=== PATIENT | female | born 2000 | race Two or more races ===

== ENCOUNTER 2025-06-09 22:52 | Inpatient (IN) | payer OTHER ==
[~2025-06-09] VITALS: Ht 157.5 cm; Wt 51.7 kg
[2025-06-09] MEDS: IOHEXOL 350 MG/ML 100ML IJ ONE (23:31)
--- NOTE | 2025-06-10 00:01 | ED.PDOC ---
History of Present Illness HPI Comments This is a 24 year-old female, accompanied by spouse, with a PMHX of DM, who presents to the ED with a chief complaint of general weakness with associated left arm numbness, face numbness, and lip tingling at approximately 2200 today. Patient reports she was at [facility] when onset of symptoms began for less than 1 minute. Patient reports being discharged from the hospital with DKA on Monday, 2 days ago. Patient has a further complaints at this time and otherwise denies further associated symptoms of fever, chills, N/V/D, LOC, or dizziness. REVIEW OF SYSTEMS: (+) general weakness, No fever, no chills, or fatigue HEENT: No sore throat, no earache, no congestion, no neck pain. Cardiac: No chest pain. No palpitations. Lungs: No shortness of breath, no cough. GI: No nausea, no vomiting, no diarrhea, no constipation, no abdominal pain : No dysuria, frequency, or urgency. No hematuria. Musculoskeletal: No joint pain , no joint swelling, no extremity edema. Skin: No rash, no itching. Neuro: (+) L arm numbness, (+) facial numbness, No headache, no dizziness, no weakness EXAM: General: Awake, alert and oriented. No acute distress. Skin: Skin in warm, dry and intact. Appropriate color for ethnicity. HEENT: The head is normocephalic and atraumatic. Conjunctivae are clear without exudates or hemorrhage. Sclera is non-icteric. EOM are intact. No signs of nystagmus. Eyelids are normal in appearance without swelling or lesions. Oral mucosa is pink and moist Neck: The neck is supple with normal range of motion. No JVD. Cardiac: Heart rate and rhythm are normal. No murmurs, gallops, or rubs are auscultated. Respiratory: No signs of respiratory distress. Lung sounds are clear in all lobes bilaterally without rales, rhonchi, or wheezes. Abdominal: Abdomen is soft, non-tender without distention. Bowel sounds are present and normoactive in all four quadrants. Extremities: Upper and lower extremities are atraumatic in appearance without deformity or edema. Neurological: (+) Normal finger nose test, no upper or lower extremity drift, normal Gait, sensation in tact bilaterally. Speech is clear. There is no facial asymmetry. Psychiatric: Appropriate mood and affect. Good judgement and insight. Chief Complaint: General Weakness Time Seen by MD: 23:31 Reviewed Notes: Medications, Allergies Allergies: Coded Allergies: NO KNOWN ALLERGIES (Unverified , 06/09/25) Information Source: Patient, Spouse Mode of Arrival: Ambulatory Severity: Moderate Timing: Hours, Came on: Suddenly Associated signs and symptoms L arm numbness, facial numbness, general weakness, lip tingling Past Medical History Past Medical History (Other): DKA Surgical History: Denies all surgeries RICE MILLING SUPERVISOR History: No Pertinent RICE MILLING SUPERVISOR History Family History Family History: Reviewed,noncontributory to illness, No family hx of Cancer, No family hx of DM, No family hx of Heart yuan, No family hx of HTN, No family hx ofKidney yuan, No family hx of Liver yuan, No family hx of Lung yuan, No family hx of Stroke Social History Smoker: Non-Smoker Alcohol: Denies ETOH Use Drugs: Denies Drug Use Lives In: Home Was a procedure done? Was a procedure done?: No X-Ray, Labs, Meds, VS Vital Signs Date Time Temp Pulse Resp B/P (MAP) Pulse Ox O2 Delivery O2 Flow Rate FiO2 06/09/25 23:00 98.4 106 16 148/97 98 98.4 Lab Test 06/10/25 00:22 Range/Units White Blood Count 7.4 4.4-10.8 10^3/uL Red Blood Count 4.14 4.0-5.20 10^6/uL Hemoglobin 9.9 L 12.2-16.2 g/dL Hematocrit 31.2 L 36.0-46.0 % Mean Corpuscular Volume 75.4 L 80.0-100.0 fL Mean Corpuscular Hemoglobin 23.9 L 28.0-32.0 pg Mean Corpuscular Hemoglobin Concent 31.8 L 32.0-36.0 g/dL Red Cell Distribution Width 19.3 H 11.8-14.3 % Platelet Count 437 140-450 10^3/uL Mean Platelet Volume 7.0 6.9-10.8 fL Neutrophils (%) (Auto) 56.8 37.0-80.0 % Lymphocytes (%) (Auto) 34.5 10.0-50.0 % Monocytes (%) (Auto) 7.4 0.0-12.0 % Eosinophils (%) (Auto) 0.7 0.0-7.0 % Basophils (%) (Auto) 0.6 0.0-2.0 % Neutrophils # (Auto) 4.2 1.6-8.6 10 ^3/uL Lymphocytes # (Auto) 2.6 0.4-5.4 10 ^3/uL Monocytes # (Auto) 0.6 0-1.3 10 ^3/uL Eosinophils # (Auto) 0.1 0-0.8 10 ^3/uL Basophils # (Auto) 0 0-0.2 10 ^3/uL Nucleated Red Blood Cells 0.0 % Prothrombin Time 10.0 9.3-11.8 sec Prothrombin Time INR 0.94 0.9-1.15 Sodium Level 135 L 136-145 mmol/L Potassium Level 3.8 3.5-5.1 mmol/L Chloride Level 100 98-107 mmol/L Carbon Dioxide Level 26 20-31 mmol/L Anion Gap 9 5-15 Blood Urea Nitrogen 16 9-23 mg/dL Creatinine 0.72 0.550-1.02 mg/dL Glomerular Filtration Rate Calc 119 >90 mL/min BUN/Creatinine Ratio 22.2 H 10.0-20.0 Serum Glucose 180 H 74-106 mg/dL Calcium Level 9.7 8.7-10.4 mg/dL Magnesium Level 1.7 1.6-2.6 mg/dL Total Bilirubin 0.3 0.2-1.0 mg/dL Aspartate Amino Transferase (AST) 15 13-40 U/L Alanine Aminotransferase (ALT) 12 7-40 U/L Alkaline Phosphatase 88 46-116 U/L Troponin I High Sensitivity < 3 L </=34 ng/L Total Protein 7.5 5.7-8.2 g/dL Albumin 4.7 3.2-4.8 g/dL [place] [address] Ph: [phone] DIAGNOSTIC IMAGING Diagnostic Imaging Report : [id number] Signed PATIENT: LANA BRAND ACCT: [id number] UNIT: [id number] : 2000 LOC: ER ROOM / BED: / AGE / SEX: 24 / F ADM STATUS: REG ER SERVICE 2321 ORDERING PHYSICIAN: ISADORA YANEZ MD PROCEDURE(s): [place] - ANGIO HEAD/Neck REASON: Suspected TIA ORDER NUMBER(s): [id number], ACCESSION NUMBER(s): [id number] Procedure: CT ANGIO HEAD/Neck HISTORY: Suspected TIA Comparison Study: None Exam Date:06/09/2025 11:46 PM TECHNIQUE: CTA head without and with intravenous contrast. CTA neck with intravenous contrast. 3D image postprocessing was performed and images were used for interpretation and reporting. Radiation Dose : CT Dose: CTDI volume is 49.45 mGy. Dose-length product is 1595 mGy*cm FINDINGS: The aortic arch demonstrates a type I configuration. The ostia of the great vessels are patent. There is conventional branching. The right CCA is patent. There is no significant stenosis of the right carotid bifurcation by NASCET criteria. The cervical right ICA is patent. The right MCA and right ABDULKADIR appear patent. There is no large vessel occlusion. The left CCA is patent. There is no significant stenoses at the left carotid bifurcation by NASCET criteria. The cervical left ICA is patent. The left MCA and left ABDULKADIR appear patent. There is no large vessel occlusion. The right vertebral artery arises from the right subclavian artery. The left vertebral artery arises from the left subclavian artery. Both vertebral arteries are patent. Both vertebral arteries join to form the patent basilar artery. Both posterior cerebral arteries arise from the tip of the basilar. Both proximal FIBERGLASS BOAT MAKER segments are patent. There is no large vessel occlusion. There is no enhancing intracranial mass. Shotty cervical lymph nodes are identified. The thyroid gland is heterogeneous. The lung apices demonstrate no pneumothorax. No destructive osseous abnormalities identified. IMPRESSION: 1. No acute large vessel occlusions or high grade stenosis. Time of 1ST Reevaluation: 00:42 Reevaluation 1ST: Unchanged Patient Education/Counseling: Need For Follow Up Family Education/Counseling: Need For Follow Up SEPSIS Sepsis Screen Date sepsis recognized/suspect: Jun 09, 2025 Time Sepsis recognized/suspect: 2302 Recent Procedure: No On Antibiotic Therapy: No Respiratory Rate >20: No Heart Rate >90: No Temp<36 C (96.8 F) or >38.3 C: No SBP <90 or MAP <65 mmHG: No New Acute Mental Status Change: No Is the patient on CPAP, BIPAP,: No Physician Orders Stroke Assessment (06/09/25 23:21) Vital Signs .PER UNIT PROTOCOL (06/09/25 23:21) Accurate Weight In Kg (06/09/25 23:21) Electrocardigram (06/09/25 23:21) Accucheck (06/09/25 23:21) Angio Head/Neck (06/09/25 23:21) Vital Signs Date Time Temp Pulse Resp B/P (MAP) Pulse Ox O2 Delivery O2 Flow Rate FiO2 06/09/25 23:00 98.4 106 16 148/97 98 98.4 Laboratory Tests Test 06/10/25 00:22 White Blood Count 7.4 10^3/uL (4.4-10.8) Departure 1 Departure Time of Disposition: 01:24 Impression: Primary Impression: Stroke-like symptoms Disposition: ADMITTED INPATIENT Condition: Fair Comments 24 year old female with episode of left upper extremity numbness and weakness, left face weakness and numbness which resolved concerning for TIA. Patient with PMH DM type 1. Patient admitted to hospitalist service for further treatment, evaluation and monitoring. Critical Care Note Critical Care Time?: No Stability Stability form required: No Heart Score Heart Score: Heart Score Response (Comments) Value History N/A 0 EKG N/A 0 Age N/A 0 Risk Factors N/A 0 Troponin N/A 0 Total 0 I personally scribed for ISADORA YANEZ MD ([email or web address]) on 06/10/25 at 00:01. El ectronically submitted by Loni Barber ([email or web address]). I personally scribed for ISADORA YANEZ MD ([email or web address]) on 06/10/25 at 00:51. Electronically submitted by Loni Barber ([email or web address]). I personally scribed for ISADORA YANEZ MD ([email or web address]) on 06/10/25 at 01:21. Electronically submitted by Loni Barber ([email or web address]). ISADORA YANEZ MD Jun 10, 2025 00:01
[2025-06-10 00:40] LABS: Hemoglobin 9.9 g/dL (12.2-16.2); Mean Corpuscular Volume 75.4 fL (80.0-100.0); Nucleated Red Blood Cells % 0.0 %
[2025-06-10 00:41] LABS: Hematocrit 31.2 % (36.0-46.0); Mean Corpuscular Hemoglobin 23.9 pg (28.0-32.0)
--- NOTE | 2025-06-10 00:50 | DVH ---
Procedure: CT ANGIO HEAD/Neck HISTORY: Suspected TIA Comparison Study: None Exam Date:06/09/2025 11:46 PM TECHNIQUE: CTA head without and with intravenous contrast. CTA neck with intravenous contrast. [employer]D [employer] postprocessing was performed and images were used for interpretation and reporting. Radiation Dose : CT Dose: CTDI volume is 49.45 mGy. Dose-length product is 1595 mGy*cm FINDINGS: The aortic arch demonstrates a type I configuration. The ostia of the great vessels are patent. The re is conventional branching. The right CCA is patent. There is no significant stenosis of the right carotid bifurcation by NASCET criteria. The cervical right ICA is patent. The right MCA and right ABDULKADIR appear patent. There is n o large vessel occlusion. The left CCA is patent. There is no significant stenoses at the left carotid bifurcation by NASCET c riteria. The cervical left ICA is patent. The left MCA and left ABDULKADIR appear patent. There is no lar ge vessel occlusion. The right vertebral artery arises from the right subclavian artery. The left vertebral artery arises from the left subclavian artery. Both vertebral arteries are patent. Both vertebral arteries join to form the patent basilar artery. Both posterior cerebral arteries arise from the tip of the basila r. Both proximal ASSISTANT FILM EDITOR segments are patent. There is no large vessel occlusion. There is no enhancing intracranial mass. Shotty cervical lymph nodes are identified. The thyroid gl and is heterogeneous. The lung apices demonstrate no pneumothorax. No destructive osseous abnormali ties identified. IMPRESSION: 1. No acute large vessel occlusions or high grade stenosis.
[2025-06-10 00:52] LABS: Alanine Aminotransferase 12 U/L (7-40); Albumin 4.7 g/dL (3.2-4.8); Alkaline Phosphatase 88 U/L (46-116); Anion Gap 9 (5-15); BUN/Creatinine Ratio 22.2 (10.0-20.0); Blood Urea Nitrogen 16 mg/dL (9-23); Calcium 9.7 mg/dL (8.7-10.4); Carbon Dioxide 26 mmol/L (20-31); Chloride 100 mmol/L (98-107); Magnesium 1.7 mg/dL (1.6-2.6); Potassium 3.8 mmol/L (3.5-5.1); Total Protein 7.5 g/dL (5.7-8.2)
[2025-06-10 00:53] LABS: Bilirubin, Total 0.3 mg/dL (0.2-1.0); Glucose 180 mg/dL (74-106); Sodium 135 mmol/L (136-145)
[2025-06-10 01:02] LABS: INR 0.94 (0.9-1.15); Prothrombin Time 10.0 sec (9.3-11.8)
[2025-06-10] MEDS: SODIUM CHLORIDE 0.9% 1,000 ML IV ONE (03:20)
[2025-06-10 03:21] VITALS: BP 113/73; RESP 18; TEMP 98.1; O2SAT 97
[2025-06-10] MEDS ORDERED: ONDANSETRON HCL 4 MG/2 ML VIAL IV PRN (04:45)
[2025-06-10] MEDS ORDERED: SODIUM CHLORIDE 0.9% 1,000 ML IV SCH (04:45)
[2025-06-10] MEDS ORDERED: DEXTROSE (50%) 50ML SYRG IV PRN (05:00)
--- NOTE | 2025-06-10 05:00 | DVHHPRES ---
History of Present Illness Resident Creating Document: NELDA MATHEW RESIDENT History of Present Illness 24-year-old female with a previous history of DKA, UTI on nitrofurantoin, marijuana use disorder presents to the ER with a history of an episode of left arm and left side of the face numbness for 1 minute, while the patient was in the grocery store. During the episode the patient experienced speech difficulty but her vision was normal. She did not lose consciousness or she was not confused after that. She was admitted in the hospital for DKA recently and was discharged 4 days back. She denies any chest pain, shortness of breaths, abdominal pain, urinary symptoms or any other complaints today. Past medical history: DKA, UTI past surgical history: section Home medications: Insulin Humalog, insulin Lantus, currently taking nitrofurantoin antibiotic for UTI Family history: Noncontributory Menstrual history: Regular cycle, every 30 days, lasts for 1 week. Her LMP was on April 29. Smoking: None Alcohol: None Drugs: Active marijuana use every day Allergies: None PCP: None, scheduled with Endocrine next week Code status: Full code Review of Systems Neurological: Weakness, Numbness Allergies: Coded Allergies: NO KNOWN ALLERGIES (Unverified , 06/09/25) Exam Vital Signs Vital Signs Date Time Temp Pulse Resp B/P (MAP) Pulse Ox O2 Delivery O2 Flow Rate FiO2 06/10/25 03:21 98.1 89 18 113/73 (86) 97 98.1 06/10/25 03:21 Room Air Exam Pt is lying on bed General Appearance: Alert, Oriented X3, Cooperative, Mild distress HEENT: Atraumatic, Mucous membranes moist/pink Respiratory: Clear to auscultation, Normal air movement, No added sounds Cardiovascular: Regular rate, Normal S1, Normal S2, No murmurs Abdominal/ : Active bowel sounds, Soft, no distention, no tenderness Extremities: No edema, Normal pulses, No tenderness/swelling Skin: No Significant rash, except past surgical scars Neuro: Normal speech, sensorimotor deficits none Psych/Mental Status: Mental status NL, Mood NL Nurse was there as nail technician during examination Labs/Xrays Labs Test 06/10/25 04:00 06/10/25 00:22 Range/Units White Blood Count 7.4 4.4-10.8 10^3/uL Red Blood Count 4.14 4.0-5.20 10^6/uL Hemoglobin 9.9 L 12.2-16.2 g/dL Hematocrit 31.2 L 36.0-46.0 % Mean Corpuscular Volume 75.4 L 80.0-100.0 fL Mean Corpuscular Hemoglobin 23.9 L 28.0-32.0 pg Mean Corpuscular Hemoglobin Concent 31.8 L 32.0-36.0 g/dL Red Cell Distribution Width 19.3 H 11.8-14.3 % Platelet Count 437 140-450 10^3/uL Mean Platelet Volume 7.0 6.9-10.8 fL Neutrophils (%) (Auto) 56.8 37.0-80.0 % Lymphocytes (%) (Auto) 34.5 10.0-50.0 % Monocytes (%) (Auto) 7.4 0.0-12.0 % Eosinophils (%) (Auto) 0.7 0.0-7.0 % Basophils (%) (Auto) 0.6 0.0-2.0 % Neutrophils # (Auto) 4.2 1.6-8.6 10 ^3/uL Lymphocytes # (Auto) 2.6 0.4-5.4 10 ^3/uL Monocytes # (Auto) 0.6 0-1.3 10 ^3/uL Eosinophils # (Auto) 0.1 0-0.8 10 ^3/uL Basophils # (Auto) 0 0-0.2 10 ^3/uL Nucleated Red Blood Cells 0.0 % Prothrombin Time 10.0 9.3-11.8 sec Prothrombin Time INR 0.94 0.9-1.15 Sodium Level 135 L 136-145 mmol/L Potassium Level 3.8 3.5-5.1 mmol/L Chloride Level 100 98-107 mmol/L Carbon Dioxide Level 26 20-31 mmol/L Anion Gap 9 5-15 Blood Urea Nitrogen 16 9-23 mg/dL Creatinine 0.72 0.550-1.02 mg/dL Glomerular Filtration Rate Calc 119 >90 mL/min BUN/Creatinine Ratio 22.2 H 10.0-20.0 Serum Glucose 180 H 74-106 mg/dL Calcium Level 9.7 8.7-10.4 mg/dL Magnesium Level 1.7 1.6-2.6 mg/dL Total Bilirubin 0.3 0.2-1.0 mg/dL Aspartate Amino Transferase (AST) 15 13-40 U/L Alanine Aminotransferase (ALT) 12 7-40 U/L Alkaline Phosphatase 88 46-116 U/L Troponin I High Sensitivity < 3 L </=34 ng/L Total Protein 7.5 5.7-8.2 g/dL Albumin 4.7 3.2-4.8 g/dL SEPSIS Sepsis Screen Date sepsis recognized/suspect: Jun 09, 2025 Time Sepsis recognized/suspect: 2302 Recent Procedure: No On Antibiotic Therapy: No Respiratory Rate >20: No Heart Rate >90: No Temp<36 C (96.8 F) or >38.3 C: No SBP <90 or MAP <65 mmHG: No New Acute Mental Status Change: No Is the patient on CPAP, BIPAP,: No Physician Orders Stroke Assessment (06/09/25 23:21) Vital Signs .PER UNIT PROTOCOL (06/09/25 23:21) Accurate Weight In Kg (06/09/25 23:21) Electrocardigram (06/09/25 23:21) Accucheck (06/09/25 23:21) Angio Head/Neck (06/09/25 23:21) Admit (06/10/25 04:39) Allergies (06/10/25 04:39) Code Status (06/10/25 04:39) Sodium Chloride 0.9% (06/10/25 04:45) Ondansetron Hcl (Zofran) (06/10/25 04:45) Complete Blood Count (06/11/25 04:00) Comprehensive Metabolic Panel (06/11/25 04:00) Npo (Nothing By Mouth) Diet (06/10/25 Breakfast) * Swallow Request (06/10/25 04:39) Notify Md Of Changes From Base (06/10/25 04:39) Night Clerk Auditor For 24 Hours (06/10/25 04:39) Rhythm Strips Once Every Shift (06/10/25 04:39) Stat Ekg For Chest Pain (06/10/25 04:39) Emergency Dysrhythmia Protocol (06/10/25 04:39) Drug Screen (06/10/25 04:50) Urinalysis (06/10/25 04:50) Communication Order (06/10/25 04:50) Insulin Lantus (Glargine) (Lantus) (06/10/25 07:00) Glucose Blood (Accu-Chek Comfort Curve T (06/10/25 07:00) Insulin R (Human) (Insulin R) (06/10/25 07:00) Dextrose 50% Syringe (06/10/25 05:00) Vital Signs Date Time Temp Pulse Resp B/P (MAP) Pulse Ox O2 Delivery O2 Flow Rate FiO2 06/10/25 03:21 98.1 89 18 113/73 (86) 97 98.1 06/10/25 03:21 89 18 97 Room Air 06/09/25 23:00 98.4 106 16 148/97 98 98.4 Laboratory Tests Test 06/10/25 00:22 White Blood Count 7.4 10^3/uL (4.4-10.8) Medications Medications Dose Ordered Sig/Erika Route Start Time Stop Time Status Last Admin Dose Admin Sodium Chloride 1,000 ml @ 1,000 mls/hr Q1H ONCE IV 06/09/25 23:30 06/10/25 00:29 DC 06/10/25 03:20 1,000 MLS/HR Assessment/Plan Assessment/Plan Left arm and left side of face numbness due to TIA/marijuana use -CT angio head neck:no acute large vessel occlusions or high-grade stenosis -EKG to rule out atrial fibrillation -urine drug screen -IV maintenance fluid -telemetry monitoring Uncontrolled diabetes mellitus Serum glucose 180 Accu-Chek and insulin Lantus, mild insulin sliding scale started HbA1c ordered Marijuana use disorder 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 Farrell , patient and RN Plan discussed with: Patient, Other (RN) My Orders Orders - NELDA MATHEW RESIDENT Procedure Category Date Status Time Admit ADMIT 06/10/25 Transmitted 04:39 Allergies BARRY 06/10/25 In Process 04:39 Code Status CODE 06/10/25 Transmitted 04:39 Sodium Chloride 0.9% PHA 06/10/25 In Process 04:45 Ondansetron Hcl PHA 06/10/25 In Process (Zofran) 04:45 Complete Blood Count LAB 06/11/25 Verified 04:00 Comprehensive LAB 06/11/25 Verified Metabolic Panel 04:00 Npo (Nothing By DIET 06/10/25 Transmitted Mouth) Diet Breakfast * Swallow Request ST 06/10/25 Transmitted 04:39 Notify Of Changes [facility] 06/10/25 In Process From Base 04:39 Night Clerk Auditor For [facility] 06/10/25 In Process 24 Hours 04:39 Rhythm Strips Once [facility] 06/10/25 In Process Every Shift 04:39 Stat Ekg For Chest [facility] 06/10/25 In Process Pain 04:39 Emergency Dysrhythmia [facility] 06/10/25 In Process Protocol 04:39 Date of Service: Jun 10, 2025 Billing Provider: CINTHYA FARRELL MD Common Visit Codes: 02345-FQECCLQ INP/OBS CARE (HIGH) Secondary Visit Codes: 61528-[id number] CARE PLAN 30 MINUTES NELDA MATHEW Jun 10, 2025 05:00
[2025-06-10 05:02] VITALS: PULSE 83
[2025-06-10 05:18] LABS: Urine Protein, UAD 1+ (Negative)
[2025-06-10 05:29] LABS: Barbiturate Scree,Urine Neg (NEGATIVE); Opiate Scree,Urine Neg (NEGATIVE)
[2025-06-10 05:30] LABS: Amphetamine Screen, Urine Neg (NEGATIVE); Benzodiazephine Screen, Urine Neg (NEGATIVE); Cannabinoid Screen, Urine Pos (NEGATIVE); Cocaine Screen, Urine Neg (NEGATIVE); Phencyclidine Screen, Urine Neg (NEGATIVE)
[2025-06-10] MEDS ORDERED: InsuLIN REG 1unit/0.01ml Soln (100units/ml) SC SCH (07:00)
[2025-06-10] MEDS ORDERED: ACCU-CHEK COMFORT CURVE STRIP VI SCH (07:00)
[2025-06-10] MEDS ORDERED: INSULIN LANTUS (GLARGINE) 1 /0.01ml (100units/ml) SC SCH (07:00)
--- NOTE | 2025-06-10 16:08 | DVHDSRES ---
Discharge Summary Date of Admission Resident Creating Document: NELDA MATHEW Jun 10, 2025 at 04:39 Date of Discharge: Jun 10, 2025 Admitting Diagnosis Left arm and left side of face numbness and we suspected possibly due to TIA/marijuana use Labs/Diagnostic Data: Laboratory Results Test 06/10/25 06:34 06/10/25 04:00 06/10/25 02:22 06/10/25 00:22 POC Glucose 71 mg/dl (70-106) Urine Color Yellow (Yellow) Urine Clarity Clear (Clear) Urine pH 7.0 (5.0-9.0) Urine Specific Diagonal > 1.050 (1.001-1.035) Urine Protein 1+ (Negative) Urine Ketones Negative (Negative) Urine Blood Negative /uL (Negative) Urine Nitrite Negative (Negative) Urine Bilirubin Negative (Negative) Urine Urobilinogen Normal mg/dL (Negative) Urine Leukocyte Esterase Negative /uL (Negative) Urine RBC None seen /hpf (0 - 4) Urine Microscopic WBC 1 /HPF (0-5) Urine Squamous Epithelial Cells Few /hpf (<5) Urine Bacteria None seen /hpf (None Seen) Urine Glucose 4+ mg/dL (Normal) Urine Opiates Screen Neg (NEGATIVE) Urine Fentanyl Screen Neg (NEGATIVE) Urine Barbiturates Screen Neg (NEGATIVE) Urine Phencyclidine Screen Neg (NEGATIVE) Urine Amphetamines Screen Neg (NEGATIVE) Urine Benzodiazepines Screen Neg (NEGATIVE) Urine Cocaine Screen Neg (NEGATIVE) Urine Cannabinoids Screen Pos (NEGATIVE) Hemoglobin A1c 12.9 % A1C (<5.7) White Blood Count 7.4 10^3/uL (4.4-10.8) Red Blood Count 4.14 10^6/uL (4.0-5.20) Hemoglobin 9.9 g/dL (12.2-16.2) Hematocrit 31.2 % (36.0-46.0) Mean Corpuscular Volume 75.4 fL (80.0-100.0) Mean Corpuscular Hemoglobin 23.9 pg (28.0-32.0) Mean Corpuscular Hemoglobin Concent 31.8 g/dL (32.0-36.0) Red Cell Distribution Width 19.3 % (11.8-14.3) Platelet Count 437 10^3/uL (140-450) Mean Platelet Volume 7.0 fL (6.9-10.8) Neutrophils (%) (Auto) 56.8 % (37.0-80.0) Lymphocytes (%) (Auto) 34.5 % (10.0-50.0) Monocytes (%) (Auto) 7.4 % (0.0-12.0) Eosinophils (%) (Auto) 0.7 % (0.0-7.0) Basophils (%) (Auto) 0.6 % (0.0-2.0) Neutrophils # (Auto) 4.2 10 ^3/uL (1.6-8.6) Lymphocytes # (Auto) 2.6 10 ^3/uL (0.4-5.4) Monocytes # (Auto) 0.6 10 ^3/uL (0-1.3) Eosinophils # (Auto) 0.1 10 ^3/uL (0-0.8) Basophils # (Auto) 0 10 ^3/uL (0-0.2) Nucleated Red Blood Cells 0.0 % Prothrombin Time 10.0 sec (9.3-11.8) Prothrombin Time INR 0.94 (0.9-1.15) Sodium Level 135 mmol/L (136-145) Potassium Level 3.8 mmol/L (3.5-5.1) Chloride Level 100 mmol/L (98-107) Carbon Dioxide Level 26 mmol/L (20-31) Anion Gap 9 (5-15) Blood Urea Nitrogen 16 mg/dL (9-23) Creatinine 0.72 mg/dL (0.550-1.02) Glomerular Filtration Rate Calc 119 mL/min (>90) BUN/Creatinine Ratio 22.2 (10.0-20.0) Serum Glucose 180 mg/dL (74-106) Calcium Level 9.7 mg/dL (8.7-10.4) Magnesium Level 1.7 mg/dL (1.6-2.6) Total Bilirubin 0.3 mg/dL (0.2-1.0) Aspartate Amino Transferase (AST) 15 U/L (13-40) Alanine Aminotransferase (ALT) 12 U/L (7-40) Alkaline Phosphatase 88 U/L (46-116) Troponin I High Sensitivity < 3 ng/L (</=34) Total Protein 7.5 g/dL (5.7-8.2) Albumin 4.7 g/dL (3.2-4.8) Beta HCG, Quantitative 0.4 mIU/mL (1.5-4.2) Other Laboratory Tests 06/10/25 00:22 Brief Hx & Hospital Course: 24-year-old female with a previous history of DKA, UTI on nitrofurantoin, marijuana use disorder presents to the ER with a history of an episode of left arm and left side of the face numbness for 1 minute, while the patient was in the grocery store. During the episode the patient experienced speech difficulty but her vision was normal. She did not lose consciousness or she was not confused after that. She was admitted in the hospital for DKA recently and was discharged 4 days back. She denies any chest pain, shortness of breaths, abdominal pain, urinary symptoms or any other complaints today. Past medical history: DKA, UTI past surgical history: section Home medications: Insulin Humalog, insulin Lantus, currently taking nitrofurantoin antibiotic for UTI Family history: Noncontributory Menstrual history: Regular cycle, every 30 days, lasts for 1 week. Her LMP was on April 29. Smoking: None Alcohol: None Drugs: Active marijuana use every day Allergies: None PCP: None, scheduled with Endocrine next week Code status: Full code Brief history of hospitalization: Patient came in with Left arm and left side of face numbness and we suspected possibly due to TIA/marijuana use. We did a CT angio of the head and neck and there was no acute large vessel occlusion or high-grade stenosis. An EKG was done to rule out atrial fibrillation. urine drug screen was done which came positive for cannabinoids. We gave the patient IV fluids and monitored her via telemetry. We also did a screening for is we will plan to do a CT head but patient wanted to leave against medical advice. For patient's uncontrolled diabetes mellitus Accu-Chek was done and serum glucose was 180. We had ordered a HbA1c and started mild sliding scale insulin and insulin Lantus. We were monitoring her but patient chose to leave AMA. She was explained about the risks of leaving against medical advice And communicated understanding but still left Operations or Procedures Procedure: CT ANGIO HEAD/Neck HISTORY: Suspected TIA Comparison Study: None Exam Date:06/09/2025 11:46 PM TECHNIQUE: CTA head without and with intravenous contrast. CTA neck with intravenous contrast. 3D image postprocessing was performed and images were used for interpretation and reporting. Radiation Dose : CT Dose: CTDI volume is 49.45 mGy. Dose-length product is 1595 mGy*cm FINDINGS: The aortic arch demonstrates a type I configuration. The ostia of the great vessels are patent. There is conventional branching. The right CCA is patent. There is no significant stenosis of the right carotid bifurcation by NASCET criteria. The cervical right ICA is patent. The right MCA and right ABDULKADIR appear patent. There is no large vessel occlusion. The left CCA is patent. There is no significant stenoses at the left carotid bifurcation by NASCET criteria. The cervical left ICA is patent. The left MCA and left ABDULKADIR appear patent. There is no large vessel occlusion. The right vertebral artery arises from the right subclavian artery. The left vertebral artery arises from the left subclavian artery. Both vertebral arteries are patent. Both vertebral arteries join to form the patent basilar artery. Both posterior cerebral arteries arise from the tip of the basilar. Both proximal PIT [employer]ERK segments are patent. There is no large vessel occlusion. There is no enhancing intracranial mass. Shotty cervical lymph nodes are identified. The thyroid gland is heterogeneous. The lung apices demonstrate no pneumothorax. No destructive osseous abnormalities identified. IMPRESSION: 1. No acute large vessel occlusions or high grade stenosis. Condition at Discharge: Undetermined Final Diagnosis/Problems List Left arm and left side of face numbness and we suspected possibly due to TIA/marijuana use Uncontrolled diabetes mellitus Marijuana use disorder Discharge Disposition: AMA Discharge Statement: "Patient was advised to return to the ER or call 911 if any headaches, dizziness, shortness of breath, chest pain, abdominal pain, bleeding, fevers, or worsening of medical condition. Patient was counseled about treatment plan, medications, possible side effects, patientverbalized understanding. All questions were answered to the best of my ability. This discharge took greater then 30 minutes in planning, reviewing documentation, counseling the patient, and discussing with other team members." ASSESSMENT ASSESSMENT Assessment Date of Service: Jun 10, 2025 Billing Provider: KATHY THOMAS MD Common Visit Codes: 11128-VBX/OBS SAME DATE (HIGH) RALF NEFF RESIDENT Jun 10, 2025 16:08 KATHY THOMAS MD Jun 10, 2025 18:22
--- NOTE | 2025-06-11 09:40 | ECG ---
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
== END 2025-06-10 08:01 | disposition left against medical advice (07) | DRG 47 ==
LOC: ER 22:52 → OVERFLOW 06-10 04:39
PROVIDERS: ATTEND Emergency Medicine
DX: G45.9 Transient cerebral ischemic attack, unspecified (principal); E11.9 Type 2 diabetes mellitus without complications; F12.90 Cannabis use, unspecified, uncomplicated; I48.91 Unspecified atrial fibrillation; Z53.29 Procedure and treatment not carried out because of patient's decision for other reasons; Z71.51 Drug abuse counseling and surveillance of drug abuser
CPT/HCPCS: 36415; 70496; 70498; 80053; 80307; 81001; 82962; 83036; 83735; 84484; 84702; 85025; 85610; 93005; 96360; G0378